=== PATIENT | female | born 1970 | race Caucasian/White ===

== ENCOUNTER → 2018-04-07 | Outpatient (CLI) | payer OTHER ==
--- NOTE | ~2018-04-07 | EXE ---
[facility] [place] [address] STRESS ECHOCARDIOGRAM Name: DEYANIRA DOMINGO Room #: REG [facility]#: [id number] Admission: 04/07/18 Attend Phys: Tony Viera Discharge: Date of : 68 Date of Service: 04/07/18 1559 Report #: [id number] THIS REPORT FOR: //name// APPROVED REPORT Study performed: 04/07/2018 14:54:53 Exam: Stress Echocardiogram Indication: Palpitations Patient Location: Out-Patient Stress Nurse: Deyanira Joshi RN Status: routine Ht: 5 ft 6 in HR: 54 bpm BP: 144/76 mmHg Rhythm: NSR Medical History Allergies: No known drug allergies Cardiac Risk Factors: FHX of CAD Procedure The patient underwent an Exercise Stress Test using the Kenny Protocol. Blood pressure, heart rate, and EKG were monitored. An Echocardiogram was performed by weatherization technician in four stages in quad fashion. At peak stress, four selected images were obtained and placed side by side with resting images for comparison. Stress Test Details Stress Test: Exercise stress testing was performed using a Kenny protocol. HR Resting HR: 54 bpm Max Heart Rate (APMHR): 172 bpm Max HR Achieved: 176 bpm Target HR (85% APMHR): 146 bpm % of APMHR: 102 Recovery HR: 86 bpm HR response to stress: Normal HR response to stress BP Resting BP: 144/76 mmHg Max BP: 162/84 mmHg Recovery BP: 130/80 mmHg ECG Resting ECG: Sinus Rhythm [facility] [address] [address] STRESS ECHOCARDIOGRAM Name: DEYANIRA DOMINGO Room #: REG [facility].#: [id number] Admission: 04/07/18 Attend Phys: Tony Viera Discharge: Date of : 68 Date of Service: 04/07/18 1559 Report #: [id number] Stress ECG: Sinus Tachycardia Recovery ECG: Sinus Rhythm Clinical Reason for Termination: Completed protocol/moderate fatigue Exercise duration: 9 min 42 sec Highest Stage Achieved: Stage 4: 4.2 mph at 16% grade. Exercise capacity: 12.3 METs Stress ECG Conclusion 1. Subjectively negative for ischemia 2. Electrocardiographically negative for ischemia 3. Satisfactory functional capacity Pre-Stress Echo The resting Echocardiogram showed normal left ventricular contractility with an estimated Ejection Fraction of about 55-60%. No significant valvular abnormalities noted. Post-Stress Echo The stress Echocardiogram showed normal left ventricular contractility with an estimated Ejection Fraction of about 60-65%. Clinical No clinical or ECG evidence for ischemia. Conclusion 1. Low risk study Other Information Study Quality: Adequate <Conclusion> 1. Low risk study <ELECTRONICALLY SIGNED> By: Ryan Aponte MD 04/07/18 1559 1559 1559 Ryan Aponte MD /INF
== END ==
LOC: CV 10:17
DX: R00.2 Palpitations (principal)